=== PATIENT | female | born 1930 | race Caucasian/White ===

== ENCOUNTER 2017-10-11 09:30 | Day surgery (SDC) | payer MEDICARE, BC ==
[~2017-10-11 09:30] MED LIST: CHONDR SU A NA/HYALUR INTRAOC KIT (SURGICARE) ONE; EPINEPHRINE INJ/PF 1 MG/1 ML AMPULE ONE; KETOROLAC TROMETHAMINE 0.45% 4 DROP/0.4 ML DROPERETTE OD PRN; LIDOCAINE 1% INJ-PF (10 MG/ML) 30 ML SDV ONE
[2017-10-11] MEDS ORDERED: LIDOCAINE 1%/PHENYLEPHRINE 1.5% 1 ML VIAL ONE (10:04)
[2017-10-11] MEDS: TROPICAMIDE 1% OPH SOLN 3 ML OD PRN ×3 (10:07→10:22)
[2017-10-11] MEDS: TETRACAINE HCL 0.5% OPH SOLN 2 ML OD PRN ×3 (10:07→10:34)
[2017-10-11] MEDS: BESIFLOXACIN HCL 0.6% OPH SUSP 5 ML BOTTLE OD PRN ×3 (10:07→10:51)
[2017-10-11] MEDS: CYCLOPENTOLATE 0.2%/PHENYLEPHRINE 1% OPH SOLN 2 ML OD PRN ×3 (10:07→10:21)
[2017-10-11] MEDS ORDERED: MIDAZOLAM 2 MG/2 ML INJ ONE (10:20)
[2017-10-11] MEDS ORDERED: FENTANYL CITRATE INJ/PF 100 MCG/2 ML AMPUL ONE (10:20)
--- NOTE | 2017-10-11 22:05 | [facility] OPERATIVE REPORT E ---
[facility] Operative Report NAME: NELLI RASHID AGE: 87Y DATE OF SURGERY: 10/11/2017 ROOM: PREOPERATIVE DIAGNOSIS: CATARACT, RIGHT EYE. POSTOPERATIVE DIAGNOSIS: CATARACT, RIGHT EYE. OPERATION: Cataract extraction with insertion of an IOL of the right eye. SURGEON: GENEVA GLASS M.D. ANESTHESIA: Topical. PROCEDURE: After obtaining appropriate consent, the patient's right eye was prepped and draped in sterile fashion as well as the surgeon in a sterile manner and cataract surgery was started. First a paracentesis blade was used to make a side-port incision. Viscoelastic was used to inflate the anterior chamber. Next a 2.4 mm incision was made with a 2.4 mm blade, clear corneal temporally. A continuous capsulorrhexis was made using a cystotome and Utrata forceps. Following this hydrodissection was carried out to make the lens fully loose and mobile and it was rotated 90 degrees. Following this, a ceofvv-fpd-xiiquxw technique was used to phacoemulsify the lens with a CDE of 9.67. The remaining cortex was removed with irrigation/aspiration. Provisc was instilled into the capsular bag to inflate the bag. A SN60WF, 21.0 diopter lens was placed. The remaining viscoelastic material was removed with irrigation/aspiration. Following this, the incision was found to be watertight. Besivance was instilled into the eye and a protective shield was placed over the eye. The patient returned to the postoperative recovery in stable condition. DICTATING PHYSICIAN: GENEVA GLASS M.D. 1305M [id number] PHY#: [id number] ID: [id number] JOB#: [id number] ACCT: [id number] cc:GENEVA GLASS M.D. >
--- NOTE | 2017-10-11 22:10 | [facility] DISCHARGE SUMMARY E ---
[facility] Discharge Summary NAME: NELLI RASHID AGE: 87Y ADMITTED: 10/11/2017 DISCHARGED: 10/11/2017 HISTORY OF PRESENT ILLNESS AND HOSPITAL COURSE: This is a 87-year-old female who underwent cataract extraction of the right eye. DIAGNOSIS: Cataract, right eye. HOSPITAL COURSE: She underwent surgery because she was having difficulty seeing what was on television and trouble reading small print. DISCHARGE INSTRUCTIONS: 1. She should be on a regular diet. 2. No bending at her waist and no heavy lifting. 3. She should use her Besivance, Ilevro, and Durezol at 3 p.m. and 8 p.m. and sleep with a rigid shield. 4. I will see her for her one-day postoperative tomorrow. DICTATING PHYSICIAN: GENEVA GLASS M.D. 1305M [id number] PHY#: [id number] ID: [id number] JOB#: [id number] ACCT: [id number] cc:GENEVA GLASS M.D. >
== END 2017-10-11 11:33 | disposition home or self-care (01) ==
LOC: SC 09:30
PROVIDERS: ATTEND Internal Medicine
DX: H25.12 Age-related nuclear cataract, left eye (principal); H40.1131 Primary open-angle glaucoma, bilateral, mild stage; H43.812 Vitreous degeneration, left eye; H04.123 Dry eye syndrome of bilateral lacrimal glands; I10 Essential (primary) hypertension; E78.00 Pure hypercholesterolemia, unspecified; M10.9 Gout, unspecified; M19.90 Unspecified osteoarthritis, unspecified site; R01.1 Cardiac murmur, unspecified; Z88.8 Allergy status to other drugs, medicaments and biological substances; Z88.3 Allergy status to other anti-infective agents; Z79.899 Other long term (current) drug therapy
CPT/HCPCS: 66984; V2632; J2250; J3490; A9270; J0171; J3010; J2370; 142

== ENCOUNTER 2017-11-08 08:03 | Day surgery (SDC) | payer MEDICARE, BC ==
[~2017-11-08 08:03] MED LIST changes: -KETOROLAC TROMETHAMINE 0.45% 4 DROP/0.4 ML DROPERETTE OD PRN; +KETOROLAC TROMETHAMINE 0.45% 4 DROP/0.4 ML DROPERETTE OS PRN
[2017-11-08] MEDS: TETRACAINE HCL 0.5% OPH SOLN 2 ML OS PRN ×3 (08:51→09:21)
[2017-11-08] MEDS: CYCLOPENTOLATE 0.2%/PHENYLEPHRINE 1% OPH SOLN 2 ML OS PRN ×3 (08:52→09:13)
[2017-11-08] MEDS: TROPICAMIDE 1% OPH SOLN 3 ML OS PRN ×3 (08:52→09:13)
[2017-11-08] MEDS: BESIFLOXACIN HCL 0.6% OPH SUSP 5 ML BOTTLE OS PRN ×4 (08:53→09:45)
[2017-11-08] MEDS ORDERED: MIDAZOLAM 2 MG/2 ML INJ ONE (09:11)
[2017-11-08] MEDS ORDERED: FENTANYL CITRATE INJ/PF 100 MCG/2 ML AMPUL ONE (09:12)
[2017-11-08] MEDS ORDERED: LIDOCAINE 1%/PHENYLEPHRINE 1.5% 1 ML VIAL ONE (09:40)
--- NOTE | 2017-11-08 17:22 | [facility] OPERATIVE REPORT E ---
[facility] Operative Report NAME: NELLI RASHID AGE: 87Y DATE OF SURGERY: 11/08/2017 ROOM: PREOPERATIVE DIAGNOSIS: Cataract, left eye. POSTOPERATIVE DIAGNOSIS: Cataract, left eye. OPERATION: Cataract extraction with insertion of an IOL of the left eye. SURGEON: GENEVA GLASS M.D. ANESTHESIA: Topical. PROCEDURE: After obtaining appropriate consent, the patient's left eye was prepped and draped in sterile fashion as well as the surgeon in a sterile manner and cataract surgery was started. First a paracentesis blade was used to make a side-port incision. Viscoelastic was used to inflate the anterior chamber. Next a 2.4 mm incision was made with a 2.4 mm blade, clear corneal temporally. A continuous capsulorrhexis was made using a cystotome and Utrata forceps. Following this hydrodissection was carried out to make the lens fully loose and mobile and it was rotated 90 degrees. Following this, a qlsnpn-ant-bpgccjw technique was used to phacoemulsify the lens with a CDE of 9.61. The remaining cortex was removed with irrigation/aspiration. Provisc was instilled into the capsular bag to inflate the bag. A SN60WF, 21.0 diopter lens was placed. The remaining viscoelastic material was removed with irrigation/aspiration. Following this, the incision was found to be watertight. Besivance was instilled into the eye and a protective shield was placed over the eye. The patient returned to the postoperative recovery in stable condition. DICTATING PHYSICIAN: GENEVA GLASS M.D. [id number] [id number] PHY#: [id number] ID: [id number] JOB#: [id number] ACCT: [id number] cc:GENEVA GLASS M.D. >
--- NOTE | 2017-11-08 17:26 | DISCHARGE SUMMARY E ---
Discharge Summary NAME: NELLI RASHID : 1930 AGE: 87Y ADMITTED: 11/08/2017 DISCHARGED: 11/08/2017 REASON FOR ADMISSION: This is an 87-year-old female who underwent cataract extraction of the left eye. DIAGNOSIS: Cataract, left eye. DISCHARGE INSTRUCTIONS: She underwent surgery because she has trouble seeing small print like medicine bottles and newspapers. She should be on a regular diet. No bending at her waist. No heavy lifting. She should use her Besivance, Ilevro, and Durezol at 3:00 p.m. and 8:00 p.m. and sleep with a rigid shield, and I will see her for a 1-day postoperative tomorrow. DICTATING PHYSICIAN: GENEVA GLASS M.D. 1284M [id number] PHY#: [id number] ID: [id number] JOB#: [id number] ACCT: [id number] cc:GENEVA GLASS M.D. >
== END 2017-11-08 10:30 | disposition home or self-care (01) ==
LOC: SC 08:03
PROVIDERS: ATTEND Internal Medicine
DX: H25.12 Age-related nuclear cataract, left eye (principal); Z96.1 Presence of intraocular lens; H40.1131 Primary open-angle glaucoma, bilateral, mild stage; I10 Essential (primary) hypertension; R01.1 Cardiac murmur, unspecified; Z88.3 Allergy status to other anti-infective agents
CPT/HCPCS: 66984; V2632; J2250; J3490 ×2; A9270; J0171; J3010; J2370; 142